=== PATIENT | male | born 1945 | race Caucasian/White ===

== ENCOUNTER 2021-06-07 09:12 | Day surgery (SDC) | payer MEDICARE ==
[~2021-06-07 09:12] MED LIST: Midazolam 1 MG/ML 2 ML SDV ONE; Propofol 200 MG/20 ML SDV ONE; fentaNYL 100 MCG/2 ML SDV ONE
[2021-06-07] MEDS ORDERED: Sodium Chloride 0.9% 1,000 ML IV SCH (10:00)
[2021-06-07] MEDS ORDERED: Propofol 200 MG/20 ML SDV ONE (11:24)
== END 2021-06-07 12:45 | disposition home or self-care (01) ==
LOC: JP.SDS 09:12
PROVIDERS: ATTEND Surgery
DX: D12.4 Benign neoplasm of descending colon (principal); D12.5 Benign neoplasm of sigmoid colon
CPT/HCPCS: 45385; 45390; J2250; J2704; J3010; J7030; 88305

== ENCOUNTER 2021-12-20 07:17 | Day surgery (SDC) | payer MEDICARE ==
[2021-12-20] MEDS ORDERED: Sodium Chloride 0.9% 1,000 ML IV SCH (08:00)
[2021-12-20] MEDS ORDERED: Propofol 200 MG/20 ML SDV ONE (08:18)
[2021-12-20] MEDS ORDERED: Midazolam 1 MG/ML 2 ML SDV ONE (08:19)
[2021-12-20] MEDS ORDERED: fentaNYL 100 MCG/2 ML SDV ONE (08:19)
== END 2021-12-20 10:50 | disposition home or self-care (01) ==
LOC: JP.SDS 07:17
PROVIDERS: ATTEND Surgery
DX: Z12.11 Encounter for screening for malignant neoplasm of colon (principal); Z86.010 Personal history of colon polyps
CPT/HCPCS: G0105; J2250; J2704; J3010; J7030